=== PATIENT | male | born 1940 | race Caucasian/White ===

== ENCOUNTER → 2018-11-22 | Outpatient (CLI) | payer MEDICARE ==
[~2018-11-22] MED LIST: ASPIRIN 32325 MG/TAB PO; ASPIRIN 81M81 MG/TA2 PO; IMDUR 60MG60 MG/TAB PO; LIPITOR20 MG PO; LOPRESSOR 550 MG/TAB PO; MEDROL 4MG DOSPA4 MG PO; NITROSTAT0.4 MG/TAB SL; NORCO 325 MG-51 TAB PO; PACERONE200 MG PO; PEPCID 20MG TAB20 MG PO; PLAVIX 75MG TAB75 MG PO; PRAVACHOL80 MG PO; PRINIVIL5 MG PO; ROXICODONE 55 MG/TAB PO; RT ADVAIR 228 DISKUS IH; RT SPIRIVA18 MCG IH; SUPER EPA 1201200 MG PO; TOPROL XL 50MG50 MG PO; TOPROL XL100 MG PO; VENTOLIN0.09 MG IH; XANAX .25M0.25 MG/TA PO; ZOCOR 40MG40 MG PO; ZYRTEC 10MG10 MG PO; [UNRECOGNIZED DRUG - OTHER] PO
== END ==
LOC: COL.RAD 07:30
DX: I67.82 Cerebral ischemia (principal); Z85.89 Personal history of malignant neoplasm of other organs and systems; Z86.69 Personal history of other diseases of the nervous system and sense organs
CPT/HCPCS: Q9967

== ENCOUNTER → 2019-06-27 | Outpatient (CLI) | payer MEDICARE | LOC: COL.RAD 07:38 | DX: R13.12 Dysphagia, oropharyngeal phase (principal); Z85.21 Personal history of malignant neoplasm of larynx ==

== ENCOUNTER 2019-07-11 13:30 | Outpatient (RCR) | payer MEDICARE | END 2019-09-16 | disposition home or self-care (01) | LOC: WSST | DX: R13.12 Dysphagia, oropharyngeal phase (principal); Z85.21 Personal history of malignant neoplasm of larynx; Z77.123 Contact with and (suspected) exposure to radon and other naturally occurring radiation ==

== ENCOUNTER → 2019-07-26 | Outpatient (CLI) | payer MEDICARE | LOC: COL.RAD 07:35 | DX: Z01.818 Encounter for other preprocedural examination (principal); I65.23 Occlusion and stenosis of bilateral carotid arteries; I70.8 Atherosclerosis of other arteries; I66.11 Occlusion and stenosis of right anterior cerebral artery; I66.01 Occlusion and stenosis of right middle cerebral artery | CPT/HCPCS: Q9967 ==

== ENCOUNTER 2021-01-25 15:20 | Emergency (ER) | payer MEDICARE ==
[2005-07-05 13:01] VITALS: BP 183/120
[~2021-01-25] VITALS: Ht 175.3 cm; Wt 72.3 kg
[2021-01-25 15:33] VITALS: TEMP 97.6
[2021-01-25 16:45] VITALS: BP 108/66; PULSE 61
== END 2021-01-25 16:55 | disposition home or self-care (01) ==
LOC: COL.ER 15:20
DX: S40.012A Contusion of left shoulder, initial encounter (principal); I25.10 Atherosclerotic heart disease of native coronary artery without angina pectoris; J44.9 Chronic obstructive pulmonary disease, unspecified; I10 Essential (primary) hypertension; E78.5 Hyperlipidemia, unspecified; Z95.9 Presence of cardiac and vascular implant and graft, unspecified; Z95.0 Presence of cardiac pacemaker; Z87.891 Personal history of nicotine dependence; Z79.02 Long term (current) use of antithrombotics/antiplatelets; Z79.82 Long term (current) use of aspirin; W01.10XA Fall on same level from slipping, tripping and stumbling with subsequent striking against unspecified object, initial encounter

== ENCOUNTER 2021-03-26 09:39 | Observation (INO) | payer MEDICARE ==
[2005-07-05 13:01] VITALS: BP 183/120
[~2021-03-26] VITALS: Ht 172.7 cm; Wt 64.4 kg
--- NOTE | 2021-03-26 08:10 | NUR ---
Initial visit; Patient thanked Breakfast Bar Attendant for looking in on him prior to his surgical procedure though declined prayer. Breakfast Bar Attendant looked in on his in the waiting room to mention Breakfast Bar Attendant had looked in on [place] and wished him well.
[2021-03-26 10:38] LABS: BASO % 0.2 % (0.0-2.0); EOS % 0.5 % (0-4.0); GRAN # 3.2 (1.4-6.5); GRAN % 71.6 % (42.2-75.2); HEMATOCRIT 40.6 % (42.0-52.0); HEMOGLOBIN 13.9 g/dl (13.5-18.0); LYMPH # 0.9 (1.2-3.4); LYMPH % 20.1 % (20.0-51.0); MEAN CELL VOLUME 96 fl (80.0-100.0); MEAN CORPUSCULAR HEMOGLOBIN 33 pg (27.0-31.0); MEAN CORPUSCULAR HGB CONC 34 g/dl (33.0-37.0); MEAN PLATELET VOLUME 9.6 fl (7.4-10.4); MONO # 0.3 (0.1-0.6); MONO % 7.4 % (1.7-9.3); PLATELET COUNT 124 K/mm3 (130-400); RED BLOOD COUNT 4.22 M/mm3 (4.20-5.60); REDCELL DISTRIBUTION WIDTH-CV 14.1 % (11.5-14.5)
[2021-03-26 10:47] LABS: ALBUMIN 4.1 gm/dL (3.5-5.0); CALCIUM 9.3 mg/dL (8.4-10.2); CREATININE, serum 1.13 (0.66-1.25); POTASSIUM 4.1 mmol/L (3.4-5.0)
[2021-03-26 10:53] VITALS: BP 102/65; PULSE 69; TEMP 97.9
[2021-03-26] MEDS ORDERED: BREO IH (11:09)
[2021-03-26] MEDS ORDERED: RYTARY1 CE2 PO (11:10)
[2021-03-26] MEDS ORDERED: COLACE 100100 MG/CAP PO (11:11)
[2021-03-26] MEDS ORDERED: SYNTHROID0.1 MG/TAB PO (11:12)
[2021-03-26] MEDS ORDERED: PACERONE100 MG PO (11:13)
[2021-03-26] MEDS ORDERED: PRILOSEC 20MG20 MG PO (11:13)
[2021-03-26] MEDS ORDERED: REQUIP2 MG PO (11:14)
[2021-03-26] MEDS ORDERED: VITAMIN D250 MCG PO (11:15)
--- NOTE | 2021-03-26 11:17 | NUR ---
MEDICATION LIST FROM
--- NOTE | 2021-03-26 11:21 | NUR ---
GARLAND FROM PUTTY WORKER INTO TALK WITH PATIENT AND HIS DREW FROM DIETARY INTO TALK TO PATIENT AND HIS .
--- NOTE | 2021-03-26 11:22 | NUR ---
CALL LIGHT IN REACH PATIENT SLEEPING AT CURRENT TIME.
--- NOTE | 2021-03-26 13:27 | NUR ---
DR STEPHENSON HOSPITALIST INTO TALK WITH PATIENT RECEIVED LAB FROM DR OSBORNE OFFICE FOR DR DIXON TO REVIEW.
--- NOTE | 2021-03-26 15:50 | NUR ---
Logistic Manager met with patient and patient's , Mitali (ph#[phone]) to discuss PEG tube supplies/formula and home health services. Patient and his live in [facility] and patient states he does not have a primary care physician, he only follows with specialists. Patient has a wheelchair at home if he needs it and reports he is normally independent with ADLS. Patient's advised she feels comfortable assisting with patient's PEG tube and administering formula. SW offered Home Health services and patient declined stating he did not feel like he needed them. JACLYN faxed referral and orders for Jevity and PEG supplies to [place] [facility]. Lara at [facility] advised [place] is within their delivery window but asked if patient could stop by their office on their way home to last picker first month's supply. JACLYN spoke with patient's and provided contact information for [facility]. Sandratyree advised they will stop by the office prior to going home today.
[2021-03-26 15:53] VITALS: BP 119/71; PULSE 84; TEMP 97.7
--- NOTE | 2021-03-26 15:53 | NUR ---
TO RM 6 PER CART FROM PACU. ALERT ORIENTED X3, TALKING TO ABOUT STAYING TO MONITORED. PATIENTS TOLD HIM SHE TALKED TO THE DAUGHTERS AND THOUGHT THAT WOULD BE BEST. C/O OF SAME SORE THROAT.
--- NOTE | 2021-03-26 15:55 | NUR ---
IV PATENT WITH #22 IN R AC.
[2021-03-26 16:10] VITALS: BP 94/53; PULSE 77
--- NOTE | 2021-03-26 16:10 | NUR ---
DRESSING OVER PEG SITE CLEAN DRY INTACT. 02 SAT 92% ON 2L
[2021-03-26 16:25] VITALS: BP 128/74; PULSE 77
--- NOTE | 2021-03-26 16:25 | NUR ---
REPORT CALLED TO JACK CHEUNG. LEFT TO HOME. GAVE HER THE RM #.
--- NOTE | 2021-03-26 16:35 | NUR ---
TRANSFERED PER CART TO RM 323-1- PATIENT SLID SELF OVER TO BED FROM CART. NURSING STAFF MOVED PATIENT UP IN BED TO HIS COMFORT. CALL LIGHT IN REACH. PATIENT GAVE ME THUMBS UP WHEN I LEFT.
[2021-03-26 19:47] VITALS: BP 156/73; PULSE 72; TEMP 97.8
[2021-03-27 00:20] VITALS: BP 114/44; BP 78/55; PULSE 84
[2021-03-27 02:18] LABS: COLLECTION METHOD CLEAN CATCH
[2021-03-27 02:29] LABS: MUCOUS Present /lpf; PH 6 (5-8); SQUAMOUS EPITHELIAL None Seen /hpf; URINE APPEARANCE Cloudy; URINE BACTERIA None Seen /hpf; URINE BILIRUBIN Negative (NEGATIVE); URINE BLOOD 1+ (NEGATIVE); URINE COLOR Yellow; URINE GLUCOSE Negative (NEGATIVE); URINE KETONE Trace (NEGATIVE); URINE LEUKOCYTE ESTERASE 3+ (NEGATIVE); URINE NITRATE Positive (NEGATIVE); URINE PROTEIN(semi-quant) Negative (NEGATIVE); URINE UROBILINOGEN Negative (NEGATIVE)
--- NOTE | 2021-03-27 02:34 | NUR ---
Call to Orquidea Hunter RE: positive UA- see new orders. Updated patient on plan of care.
[2021-03-27 05:03] VITALS: BP 124/60; PULSE 81; TEMP 97.6
--- NOTE | 2021-03-27 05:58 | NUR ---
Slept throughout the night, sitting up in bed resting quietly, refuses pain meds for pain, patient winces when drinking, VS stable, requires x 1 assist to ambulate, tolerated IV abt for postive UTI, updated on plan of care, will continue to monitor.
[2021-03-27 06:32] LABS: GRAN # 2.6 (1.4-6.5); GRAN % 88.6 % (42.2-75.2); HEMATOCRIT 38.7 % (42.0-52.0); LYMPH # 0.3 (1.2-3.4); MEAN CELL VOLUME 98 fl (80.0-100.0); MEAN CORPUSCULAR HEMOGLOBIN 33 pg (27.0-31.0); MEAN CORPUSCULAR HGB CONC 34 g/dl (33.0-37.0); MEAN PLATELET VOLUME 9.9 fl (7.4-10.4); MONO # 0.1 (0.1-0.6); MONO % 1.7 % (1.7-9.3); PLATELET COUNT 100 K/mm3 (130-400); RED BLOOD COUNT 3.97 M/mm3 (4.20-5.60); REDCELL DISTRIBUTION WIDTH-CV 14.3 % (11.5-14.5)
[2021-03-27 07:02] LABS: CALCIUM 8.8 mg/dL (8.4-10.2); CREATININE, serum 0.93 (0.66-1.25); POTASSIUM 4.4 mmol/L (3.4-5.0)
[2021-03-27 07:43] VITALS: BP 148/71; PULSE 87; TEMP 98.3
--- NOTE | 2021-03-27 09:58 | NUR ---
JACLYN met with the patient and his , Mitali, to review d/c plan. The patient and his report that they are ready to get home. Mitali reports that she has already picked up the patient's feedings and supplies from [facility]. They had no other questions or concerns for JACLYN about returning home upon d/c. No additional needs at this time.
--- NOTE | 2021-03-27 10:00 | NUR ---
Patients is at bedside. They are asking about discharging home. She had questions about the second port on the PEG tube. Explained that is for flushing if tube feeding is going or just flushing the tube. She asked about the dressing around the PEG tube, explained its there for in case there's drainage. Patient and would not allow this nurse to do the tube feeding. They stated they wanted to wait until they are home. They also did not want to take the medication here and wanted to take them at home. Discussed which medications he takes. They are waiting for Dr Salguero to discharge home. Patient denies pain and nausea. No other changes at this time. Call light within reach.
[2021-03-27] MEDS ORDERED: OMNICEF 300MG300 MG PO (11:29)
[2021-03-27 13:16] VITALS: BP 148/73; PULSE 78; TEMP 98.4
--- NOTE | 2021-03-27 14:00 | NUR ---
Patient is discharging home. Discharge instructions discussed with patient. No questions verbalized. INT discontinued. Explained that a script for antibiotic sent to the pharmacy. Explained when follow up appiontment is. No questions verbalized. Copies of discharge instructions given to patient. All belongings packed up by and sent with patient. Patient walked out via wheel chair by Sharon CHAVEZ.
== END 2021-03-27 14:00 | disposition home or self-care (01) ==
LOC: SDCO 09:39 → SURG 15:23
PROVIDERS: Hospitalist; ADMIT Surgery
DX: C32.9 Malignant neoplasm of larynx, unspecified (principal); D63.8 Anemia in other chronic diseases classified elsewhere; I25.10 Atherosclerotic heart disease of native coronary artery without angina pectoris; I10 Essential (primary) hypertension; N39.0 Urinary tract infection, site not specified; D69.6 Thrombocytopenia, unspecified; I25.2 Old myocardial infarction; E11.9 Type 2 diabetes mellitus without complications; J44.9 Chronic obstructive pulmonary disease, unspecified; G47.30 Sleep apnea, unspecified; E78.5 Hyperlipidemia, unspecified; E03.9 Hypothyroidism, unspecified; I73.9 Peripheral vascular disease, unspecified; G20 Parkinson's disease; Z79.899 Other long term (current) drug therapy; Z79.890 Hormone replacement therapy; Z79.82 Long term (current) use of aspirin; Z95.1 Presence of aortocoronary bypass graft; Z90.89 Acquired absence of other organs; Z87.891 Personal history of nicotine dependence; Z79.52 Long term (current) use of systemic steroids; Z79.01 Long term (current) use of anticoagulants; Z95.810 Presence of automatic (implantable) cardiac defibrillator; Z79.02 Long term (current) use of antithrombotics/antiplatelets
CPT/HCPCS: 99222; G0378; J0690; J0696; J1100; J2405; J2704; J3010; J7030; J7120